=== PATIENT | female | born 1985 | race Two or more races ===

== ENCOUNTER 2018-12-28 08:37 | Emergency (ER) | payer OTHER ==
[~2018-12-28] VITALS: Ht 177.8 cm; Wt 115.2 kg
[2018-12-28 08:46] VITALS: BP 170/103; Ht 177.8 cm; Wt 115.2 kg
== END 2018-12-28 10:28 | disposition home or self-care (01) ==
LOC: ED 08:37
DX: S80.862A Insect bite (nonvenomous), left lower leg, initial encounter (principal); F15.10 Other stimulant abuse, uncomplicated; F15.20 Other stimulant dependence, uncomplicated; E66.9 Obesity, unspecified; Z68.36 Body mass index [BMI] 36.0-36.9, adult; W57.XXXA Bitten or stung by nonvenomous insect and other nonvenomous arthropods, initial encounter; Y93.89 Activity, other specified; Y92.89 Other specified places as the place of occurrence of the external cause; Y99.8 Other external cause status